=== PATIENT | female | born 1975 | race African-American/Black ===

== ENCOUNTER 2021-01-23 11:10 | Emergency (ER) | payer SELFPAY ==
[~2021-01-23] VITALS: Ht 165.1 cm; Wt 101.0 kg
[2021-01-23] MEDS ORDERED: KETOROLAC 60MG/2ML VIAL IM ONE (13:30)
[2021-01-23 14:00] VITALS: BP 193/113
[2021-01-23] MEDS ORDERED: IBUP-2030 MT (14:44)
[2021-01-23] MEDS ORDERED: CYCL10TA7 MT (14:44)
[2021-01-27 04:07] LABS: NEISSERIA GONORRHOEAE NAA Negative (Negative)
== END 2021-01-23 14:56 | disposition home or self-care (01) ==
LOC: ER 11:10
DX: M54.42 Lumbago with sciatica, left side (principal); N89.8 Other specified noninflammatory disorders of vagina
CPT/HCPCS: 87210; 87491; 87591; 96372; 99284; J1885